=== PATIENT | female | born 1980 | race Two or more races ===

== ENCOUNTER 2016-09-25 01:23 | Emergency (ER) | payer SELFPAY ==
[~2016-09-25 01:23] MED LIST: AMOXIL875 MG PO; BENTYL20 M1 PO; COLACE100 MG PO; CYCLOBENZAPRINE10 M1 PO; CYCLOBENZAPRINE5 M1 PO; ELAVIL25 MG PO; FLEXERIL10 MG PO; GI COCKTAIL PO; IBUPROFEN600 MG PO; IBUPROFEN800 MG PO; IMODIUM2 MG PO; KEFLEX500 M1 PO; KEFLEX500 MG PO; LEVAQUIN750 MG PO; LORTAB 7.5/5001 TAB PO; MIRALAX17 G1 PO; MIRALAX17 G2 PO; NO HOME MEDS; NORCO 5-325 TA1 EACH PO; NORCO 5/325 TAB1 TAB PO; NORCO 5/3251 TA1 PO; PRENATAL1 EACH PO; PROTONIX40 M1 PO; SENOKOT-S TABL1 EACH PO; SENOKOT-S TABLE1 TAB PO; TAMIFLU75 MG PO; TRAMADOL HCL50 MG PO; TYLENOL325 M1 PO; TYLENOL325 M2 PO; TYLENOL325 MG PO; TYLENOL650 MG PO; ULTRAM50 M1 PO; UNKNOWN ANTIBIOTIC; VICODIN 5/500 T1 TAB PO; VISTARIL50 MG PO; XIFAXAN550 MG PO; ZITHROMAX500 M1 PO; ZOFRAN ODT4 MG PO; ZOFRAN ODT8 MG/TAB PO; ZOFRAN4 M1 PO
[2016-09-25 02:29] LABS: BASO % 0.8 % (0-2); BASO ABSOLUTE COUNT 0.1 tho/cmm (0.0-0.2); EOSINOPHIL ABSOLUTE COUNT 0.5 tho/cmm (0.0-0.7); HCT-HEMATOCRIT 38.1 % (34.0-49.0); HGB-HEMOGLOBIN 13.4 gm/dl (12.0-15.5); IMMATURE GRANULOCYTES ABSOLUTE 0.03 tho/cmm (0-0.03); IMMATURE GRANULOCYTES PERCENT 0.3 % (0-0.3); LYMPH % 37.4 % (20-45); LYMPH ABSOLUTE COUNT 3.4 tho/cmm (0.8-4.5); MCH (MEAN CORPUSCULAR HGB) 29.5 pg (28.0-32.0); MCHC MEAN CORPUSCULAR HGB CONC 35.2 % (32.0-36.0); MCV (MEAN CELL VOLUME) 83.7 fl (82.0-96.0); MEAN PLATELET VOLUME 10.4 cmc (9.4-12.4); MONO % 6.4 % (0-12); MONOCYTE ABSOLUTE COUNT 0.6 tho/cmm (0.0-1.2); NEUTROPHIL ABSOLUTE COUNT 4.6 tho/cmm (1.6-8.0); NEUTROPHIL-AUTOMATED 4.6 tho/cmm (1.6-8.0); NEUTROPHILS % 50.1 % (40-80); PLATELET COUNT 262 tho/cmm (150-450); RED BLOOD COUNT 4.55 mil/cmm (4.00-5.20); RED CELL DISTRIBUTION WIDTH 12.8 % (12.4-16.4); WHITE BLOOD COUNT 9.2 tho/cmm (4.0-10.0)
[2016-09-25 02:38] LABS: BLOOD UREA NITROGEN 11 mg/dl (6-24); CALCIUM 8.3 mg/dl (8.5-10.5); CARBON DIOXIDE-VENOUS 24 mmol/L (22-32); CHLORIDE 109 mmol/l (96-110); CREATININE 0.75 mg/dl (0.50-1.10); SODIUM 142 mmol/L (135-145); eGFR VALUE FOR BLACK >90 mL/Min
[2016-09-25 03:09] LABS: ANION GAP 13 mmol/L (0-20); GLUCOSE 117 mg/dL (70-110); POTASSIUM 3.6 mmol/L (3.7-5.1)
[2016-09-25 03:26] LABS: URINE BILIRUBIN NEGATIVE (NEG); URINE BLOOD LARGE (NEG); URINE GLUCOSE (UA) NEGATIVE (NEG); URINE KETONE NEGATIVE (NEG); URINE LEUKOCYTE ESTERASE NEGATIVE (NEG); URINE NITRITE NEGATIVE (NEG); URINE PROTEIN NEGATIVE (NEG)
[2016-09-25 03:29] LABS: URINE APPEARANCE CLEAR; URINE COLOR PALE YELLOW
[2016-09-25 03:50] LABS: URINE EPITHELIAL CELLS 0-5 /[HPF] (0-10); URINE RBC 0-2 /[HPF] (0-5); URINE WBC 0-1 /[HPF] (0-5)
== END 2016-09-25 04:20 ==
LOC: EDMED 01:23
PROVIDERS: Nurse Practitioner Family
DX: G43.109 Migraine with aura, not intractable, without status migrainosus (principal); Z87.442 Personal history of urinary calculi; Z90.710 Acquired absence of both cervix and uterus; Z98.890 Other specified postprocedural states
CPT/HCPCS: J1885; J2405; J2765; J7030